=== PATIENT | female | born 1970 | race Caucasian/White ===

== ENCOUNTER 2018-05-15 18:34 | Emergency (ER) | payer MEDICAID ==
[~2018-05-15] VITALS: Ht 162.6 cm; Wt 132.4 kg
[~2018-05-15 18:34] MED LIST: APAP/HYDROCODON1 T13 PO; COL100 PO; CYCLOBENZAPRINE5 MG PO; PRILOSEC40 MG PO; VENTOLIN H0.09 MG/A1 INH
[2018-05-15 18:51] VITALS: Ht 162.6 cm; Wt 132.4 kg
[2018-05-15 20:11] VITALS: BP 130/80
== END 2018-05-15 20:11 | disposition home or self-care (01) ==
LOC: ED 18:34
DX: M54.2 Cervicalgia (principal); M54.5 Low back pain; R07.81 Pleurodynia; V48.5XXA Car driver injured in noncollision transport accident in traffic accident, initial encounter; Y93.I9 Activity, other involving external motion; Y92.89 Other specified places as the place of occurrence of the external cause; Y99.8 Other external cause status

== ENCOUNTER 2019-07-24 03:04 | Emergency (ER) | payer MEDICAID ==
[~2019-07-24] VITALS: Ht 162.6 cm; Wt 140.2 kg
[2019-07-24 03:14] VITALS: Ht 162.6 cm; Wt 140.2 kg
[2019-07-24 04:52] LABS: BASOPHIL % 0.3 % (0-2); PLATELET COUNT 341 x10^3mcL (130-400)
[2019-07-24 04:58] LABS: CALCIUM 8.8 mg/dL (8.5-10.1); CHLORIDE SERUM 102 mmol/L (98-107); CREATININE SERUM 0.7 mg/dL (0.6-1.0); GFR1 > 60 mL/min; GLUCOSE SERUM 102 mg/dL (74-106); POTASSIUM SERUM 3.5 mmol/L (3.5-5.1); SODIUM SERUM 137 mmol/L (136-145)
[2019-07-24 05:04] LABS: ALKALINE PHOSPHATASE 85 U/L (46-116); ALT/SGPT 36 U/L (14-59); AST/SGOT 26 U/L (15-37); BILIRUBIN TOTAL 0.5 mg/dL (0.20-1.00)
[2019-07-24 05:05] LABS: ALBUMIN 3.3 g/dL (3.4-5.0)
[2019-07-24 07:03] VITALS: BP 154/79
== END 2019-07-24 07:03 | disposition home or self-care (01) ==
LOC: ED 03:04
PROVIDERS: Emergency Medicine
DX: L03.116 Cellulitis of left lower limb (principal); L03.115 Cellulitis of right lower limb; R60.0 Localized edema; R20.2 Paresthesia of skin; M25.512 Pain in left shoulder; M25.511 Pain in right shoulder; J45.909 Unspecified asthma, uncomplicated; Z90.49 Acquired absence of other specified parts of digestive tract; Z90.89 Acquired absence of other organs; Z88.0 Allergy status to penicillin
CPT/HCPCS: 36415; 83880; Q0092